=== PATIENT | female | born 1990 | race Caucasian/White ===

== ENCOUNTER 2019-06-23 07:38 | Inpatient (IN) ==
[2019-06-23] MEDS ORDERED: OXYTOCIN 30 UNITS/500 ML BAG IV PRN (09:26)
--- NOTE | 2019-06-23 09:30 | Obstetrical Progress Note ---
Date of Service June 23, 2019 Assessment & Plan Admission and Anticipated Discharge Date Admission Date: June 23, 2019 Subjective Pt doing well FHR ; CAT! CTx 2-4mins mild intensity VE: ft/post/50%/-2/mid EFW: 8lbs will start with Cytotec Pt agrees with plan Results & Data ([facility]) Vital Signs (Past 12 Hours) Vital Signs Temp Resp 06/23/19 08:30 36.6 C 20
[2019-06-23 09:50] LABS: Hematocrit (blood only) 29.9 % (37-47); Mean Corpuscular Hemoglobin 27.2 pg (25-34); Mean Corpuscular Volume 81.3 fL (80-100); Mean Platelet Volume 10.6 fL (7.4-10.4); Nucleated RBC # (auto) 0.02 K/uL (0-0); Nucleated RBC % (auto) 0.3 %; Platelet Count 202 K/uL (130-400); RDW Coefficient of Variation 13.7 % (11.5-14.5); RDW Standard Deviation 40.8 fL (36.4-46.3); Red Blood Count 3.68 M/uL (4.2-5.4); White Blood Count 8.39 K/uL (4.8-10.8)
[2019-06-23] MEDS ORDERED: Nursing to Pharmacy Communication ONE (09:52)
[2019-06-23 09:57] LABS: Mean Corpuscular Hgb Conc 33.4 g/dL (32-36)
[2019-06-23] MEDS: miSOPROStoL 50 MCG TAB PO SCH ×4 (10:06→23:00)
[2019-06-23] MEDS ORDERED: miSOPROStoL 50 MCG TAB PO SCH (12:00)
[2019-06-23] MEDS ORDERED: DINOPROSTONE 10 MG INSERT PV ONE (20:09)
[2019-06-23] MEDS: LACTATED RINGER'S 1,000 ML IV PRN (21:36)
[2019-06-23] MEDS: BUTORPHANOL TARTRATE 1 MG/ML VIAL IV PRN (22:09)
[2019-06-24] MEDS: miSOPROStoL 50 MCG TAB PO SCH (03:43)
[2019-06-24] MEDS ORDERED: LEVOTHYROXINE SODIUM 112 MCG TABLET PO STA (07:05)
--- NOTE | 2019-06-24 11:10 | History & Physical Report ---
Date of Service June 24, 2019 Assessment & Plan (1) Post-dates : 28 yo at 40.4 wk admitted yesterday for IOL, s/p 4 doses of Cytotec VSS febrile FHR ressuring GBS Negative Plan to continue with cervical ripening Continue to monitor History of Present Illness Primary Care Provider: NO PCP Patient is a 28 yo at 40.4 wks who was admitted yesterday for IOL for postdates She received PO cytotec for 4 dose, feels cxs q 3-4 min, not very painful No LOF/VB +FM Her has been uncomplicated GBS negative Allergies Allergy/AdvReac Type Severity Reaction Status Date / Time No Known Allergies Allergy Verified 06/23/19 09:14 Home Medications Home Medications Medication Instructions Recorded Confirmed Type levothyroxine 112 mcg PO DAILY 06/23/19 06/23/19 History vit-iron fum-folic ac 1 tab PO DAILY 06/23/19 06/23/19 History [ Vitamin] Patient History Medical History Hypothyroidism Social History Preferred Language: Romanian Beliefs That Will Affect Care: None marital status: Current Living Situation: Spouse Other Information That Helps Us Care for You: No Feels Safe at Home: Yes Safety Concerns: Feels Safe At This Time Smoking Status: Never smoker Hx Alcohol Use: No Hx Substance Use: No DISCOVERY GUIDE History Denies h/o STD's Review of Systems All systems reviewed & are unremarkable except as noted in HPI & below Physical Exam Constitutional: WD/WN, vitals as above well developed and well nourished NAD Gastrointestinal (Abdomen): Abd: sof, NT, gravid, luciano 8 lb Genitourinary: VE; cervix 2 cm/ 60%/ -2, posterior Results & Data Vital Signs (Past 12 Hours) Vital Signs Temp Pulse Resp BP 06/24/19 10:53 92 H 148/77 H 06/24/19 07:08 85 131/86 06/24/19 07:06 36.9 C 20 06/24/19 02:45 36.8 C 75 18 115/56 L 06/24/19 01:01 75 116/57 L Monitoring External Monitor Categ I Tocodynamometer Ctxs q 3-5 min
[2019-06-24] MEDS ORDERED: DINOPROSTONE 10 MG INSERT PV ONE (11:50)
[2019-06-24] MEDS: BUTORPHANOL TARTRATE 1 MG/ML VIAL IV PRN ×2 (13:00→16:59)
[2019-06-24] MEDS ORDERED: ePHEDrine sulfate 50 MG/ML AMP ONE (20:31)
[2019-06-24] MEDS ORDERED: fentaNYL citrate 100 MCG/2 ML VIAL ONE (20:31)
[2019-06-24] MEDS ORDERED: BUPIVACAINE 0.25% 30 ML VIAL ONE (20:31)
[2019-06-24] MEDS ORDERED: fentaNYL 2MCG/ML ROPIV 1.25MG/ML 100 ML BAG EPI ONE (20:32)
--- NOTE | 2019-06-24 20:47 | Obstetrical Progress Note ---
Date of Service June 24, 2019 Assessment & Plan Admission and Anticipated Discharge Date Admission Date: June 23, 2019 Subjective Patient is reevaluated She is getting more panful and desires epidural for pain VE 3/ 70%/ -2 per her nurse FHR categ I [place]: ctxs q 2-4 min Bed side US done: unable to get perfect measures for BPD/ HC due to being low, EFW 3670 gr, FM's seen Will continue to monitor Epidural for pain Results & Data ([facility]) Vital Signs (Past 12 Hours) Vital Signs Temp Pulse Resp BP Pulse Ox 06/24/19 19:05 36.8 C 18 06/24/19 19:04 85 123/76 06/24/19 18:33 103 H 96 06/24/19 18:28 99 H 97 06/24/19 18:23 83 96 06/24/19 18:18 84 97 06/24/19 18:13 88 96 06/24/19 18:08 85 95 06/24/19 18:03 82 96 06/24/19 17:58 78 96 06/24/19 17:53 80 96 06/24/19 17:48 79 96 06/24/19 17:43 81 95 06/24/19 17:38 78 96 06/24/19 17:33 84 96 06/24/19 17:28 76 96 06/24/19 17:23 98 H 97 06/24/19 17:18 108 H 96 06/24/19 17:13 81 95 06/24/19 17:08 81 96 06/24/19 17:03 75 96 06/24/19 16:59 83 126/80 06/24/19 16:58 89 98 06/24/19 16:19 36.8 C 18 06/24/19 15:22 90 99 06/24/19 15:17 86 99 06/24/19 15:12 81 98 06/24/19 15:07 75 98 06/24/19 15:02 70 98 06/24/19 14:57 68 98 06/24/19 14:52 67 99 06/24/19 14:47 68 97 06/24/19 14:42 64 98 06/24/19 14:37 91 H 98 06/24/19 14:32 69 98 06/24/19 14:27 70 97 06/24/19 14:22 71 98 02/14/20 14:17 80 98 06/24/19 14:12 76 98 06/24/19 14:07 73 98 06/24/19 14:02 79 98 06/24/19 13:57 79 98 06/24/19 13:52 75 98 06/24/19 13:47 78 99 06/24/19 13:42 79 98 06/24/19 13:37 83 98 06/24/19 13:32 71 97 06/24/19 13:27 73 97 06/24/19 13:22 74 97 06/24/19 13:17 76 97 06/24/19 13:12 71 97 06/24/19 13:07 75 98 06/24/19 13:02 78 99 06/24/19 13:00 06/24/19 12:58 83 138/82 06/24/19 11:00 36.9 C 20 06/24/19 10:53 92 H 148/77 H
--- NOTE | 2019-06-24 20:50 | Anesthesiology Consultation ---
Date of Service June 24, 2019 Assessment & Plan Chart Review Chart Review: Patient NOT seen in Pre Admission Testing and Acceptable Risk for Labor Epidural Consults Requested none ASA ASA2 Proposed Anesthesia Anesthesia Type: Labor Epidural and CSE Risk / Benefits Reviewed With: PT / POA / Parent / Guardian, Accepts Plan and Informed Consent Obtained History Height/Weight Height: 5 ft 3 in Weight: 77.111 kg Allergies Allergy/AdvReac Type Severity Reaction Status Date / Time No Known Allergies Allergy Verified 06/23/19 09:14 Medications Home Medications Medication Instructions Recorded Confirmed Last Taken levothyroxine 112 mcg PO DAILY 06/23/19 06/23/19 06/23/19 05:45 vit-iron fum-folic ac 1 tab PO DAILY 06/23/19 06/23/19 06/23/19 05:45 [ Vitamin] Active Medications Generic Name Dose Route Start Last Admin Trade Name Freq PRN Reason Stop Dose Admin Butorphanol Tartrate 1 mg 06/23/19 21:50 06/24/19 16:59 Stadol IV 07/23/19 21:49 1 mg Q4 PRN Administration Pain Lactated Ringer's 1,000 mls @ 125 mls/hr 06/23/19 09:26 06/24/19 20:25 Lr IV 06/25/19 09:25 999 mls/hr .Q8H PRN Infusion L&D Protocol Protocol Misoprostol 50 mcg 06/23/19 10:00 06/24/19 03:43 Cytotec PO 07/23/19 09:59 50 mcg Q4H KIMBERLY Administration NPO Date Last Intake of Fluids: 06/24/19 Time Last Intake of Fluids: 18:00 Date Last Intake of Solids: 06/24/19 Time Last Intake of Solids: 08:00 Past Medical History Medical History Hypothyroidism Exercise / Class Metabolic Activity II 4-5 Yardwork/Stairs/Walk up hill Past Anesthesia History No Hx of Anesthesia Complications and No Family Hx of Anesthesia Complications History of PONV No Hx of PONV and No Hx of Motion Sickness Social History Smoking Status: Never smoker Hx Alcohol Use: No Hx Substance Use: No substance use type: does not use Physical Exam Vital Signs Last Vital Signs Temp 36.8 C 06/24/19 19:05 Pulse 86 06/24/19 20:46 Resp 18 06/24/19 19:05 BP 125/81 06/24/19 20:46 Pulse Ox 96 06/24/19 18:33 Constitutional + obese ENMT Mouth: + small oral opening; no dentition abnormality Thyromental Distance: < 3.5 Finger Breadths Mallampati Class: II Neck normal visual inspection and trachea midline; neck extension not limited Respiratory normal respiratory effort Auscultation: lungs clear to auscultation bilaterally Cardiovascular Rate/Rhythm: regular rate and regular rhythm Heart Sounds: no murmur Musculoskeletal Spine: lumbar spine normal to inspection; normal cervical ROM Neurologic moves all extremities Motor/Sensory: no sensory deficit Psychiatric Orientation: alert and oriented x 3 Testing Laboratory Results 06/23/19 09:36
[2019-06-24] MEDS ORDERED: NALOXONE HCL 1 MG in SODIUM CHLORIDE 0.9% 1000ML 1,000 ML IV PRN (21:17)
[2019-06-24] MEDS ORDERED: PROMETHAZINE HCL 25 MG in SODIUM CHLORIDE 0.9% 50 ML IV PRN (21:17)
[2019-06-24] MEDS ORDERED: NALOXONE HCL 0.4 MG/1 ML VIAL/CARP IV PRN (21:17)
[2019-06-24] MEDS ORDERED: NALBUPHINE HCL INJ 10 MG/ML AMP IV PRN (21:17)
[2019-06-24] MEDS ORDERED: ePHEDrine sulfate 50 MG/ML AMP IV PRN (21:17)
[2019-06-24] MEDS ORDERED: fentaNYL 2MCG/ML ROPIV 1.25MG/ML 100 ML BAG EPI PRN (21:17)
[2019-06-24] MEDS ORDERED: DiphenhydrAMINE HCL 50 MG/ML VIAL IV PRN (21:17)
[2019-06-24] MEDS ORDERED: ONDANSETRON INJ 2 MG/ML 2 ML VIAL IV PRN (21:17)
--- NOTE | 2019-06-24 22:22 | Obstetrical Progress Note ---
Date of Service June 24, 2019 Assessment & Plan Admission and Anticipated Discharge Date Admission Date: June 23, 2019 Subjective Patient is comfortable now VE; 3-4 cm/ 705/ -2, more central, AROM'ed clear fluid, Cervidil came out FHR categ I [place] ctxs q2-5 min Continue to monitor Anticipate Results & Data ([facility]) Vital Signs (Past 12 Hours) Vital Signs Temp Pulse Resp BP Pulse Ox 06/24/19 22:17 97 H 98 06/24/19 22:15 88 120/74 06/24/19 22:12 73 98 06/24/19 22:07 71 98 06/24/19 22:02 87 99 06/24/19 21:59 86 110/65 06/24/19 21:57 88 99 06/24/19 21:52 92 H 97 06/24/19 21:47 95 H 98 06/24/19 21:46 88 124/65 06/24/19 21:42 92 H 98 06/24/19 21:37 93 H 98 06/24/19 21:32 91 H 98 06/24/19 21:29 93 H 117/67 06/24/19 21:27 89 120/66 97 06/24/19 21:25 87 119/63 06/24/19 21:23 93 H 117/63 06/24/19 21:22 87 98 06/24/19 21:21 81 120/64 06/24/19 21:19 90 118/64 06/24/19 21:17 92 H 124/65 98 06/24/19 21:15 82 124/63 06/24/19 21:13 86 133/66 06/24/19 21:12 84 99 06/24/19 21:11 86 110/66 06/24/19 21:09 94 H 130/73 06/24/19 21:07 86 98 06/24/19 20:46 86 125/81 06/24/19 19:05 36.8 C 18 06/24/19 19:04 85 123/76 06/24/19 18:33 103 H 96 06/24/19 18:28 99 H 97 06/24/19 18:23 83 96 06/24/19 18:18 84 97 06/24/19 18:13 88 96 06/24/19 18:08 85 95 06/24/19 18:03 82 96 06/24/19 17:58 78 96 06/24/19 17:53 80 96 06/24/19 17:48 79 96 06/24/19 17:43 81 95 06/24/19 17:38 78 96 06/24/19 17:33 84 96 06/24/19 17:28 76 96 06/24/19 17:23 98 H 97 06/24/19 17:18 108 H 96 06/24/19 17:13 81 95 06/24/19 17:08 81 96 06/24/19 17:03 75 96 06/24/19 16:59 83 126/80 06/24/19 16:58 89 98 06/24/19 16:19 36.8 C 18 06/24/19 15:22 90 99 06/24/19 15:17 86 99 06/24/19 15:12 81 98 06/24/19 15:07 75 98 06/24/19 15:02 70 98 06/24/19 14:57 68 98 06/24/19 14:52 67 99 06/24/19 14:47 68 97 06/24/19 14:42 64 98 06/24/19 14:37 91 H 98 06/24/19 14:32 69 98 06/24/19 14:27 70 97 06/24/19 14:22 71 98 06/24/19 14:17 80 98 06/24/19 14:12 76 98 06/24/19 14:07 73 98 06/24/19 14:02 79 98 06/24/19 13:57 79 98 06/24/19 13:52 75 98 06/24/19 13:47 78 99 06/24/19 13:42 79 98 06/24/19 13:37 83 98 06/24/19 13:32 71 97 06/24/19 13:27 73 97 06/24/19 13:22 74 97 06/24/19 13:17 76 97 06/24/19 13:12 71 97 06/24/19 13:07 75 98 06/24/19 13:02 78 99 06/24/19 13:00 20 06/24/19 12:58 83 138/82 06/24/19 11:00 36.9 C 20 06/24/19 10:53 92 H 148/77 H
[2019-06-24] MEDS: LACTATED RINGER'S 1,000 ML IV PRN (22:41)
[2019-06-24] MEDS ORDERED: OXYTOCIN 30 UNITS/500 ML BAG IV PRN (23:46)
[2019-06-25] MEDS: LACTATED RINGER'S 1,000 ML IV PRN (05:55)
[2019-06-25] MEDS ORDERED: CEFAZOLIN 3000MG/72.5 ML BAG IV STA (06:52)
[2019-06-25] MEDS ORDERED: CEFAZOLIN 2000MG 2,000 MG/15 ML SYR IV ONE (07:15)
[2019-06-25] MEDS: BUTORPHANOL TARTRATE 1 MG/ML VIAL IV PRN (07:24)
[2019-06-25] MEDS ORDERED: COLLAGEN HEMOSTAT ABSORBABLE ONE (07:30)
[2019-06-25] MEDS ORDERED: BENZOCAINE 20% AER SPR 82.5 GM CAN EXT PRN (07:57)
[2019-06-25] MEDS ORDERED: HYDROCORTISONE ACETATE 25 MG SUPP PR PRN (07:57)
[2019-06-25] MEDS ORDERED: SUPERCREAM 0.870% 15 GM JAR EXT PRN (07:57)
[2019-06-25] MEDS ORDERED: ACETAMINOPHEN 325 MG TAB PO PRN (07:57)
[2019-06-25] MEDS ORDERED: OXYTOCIN 30 UNITS/500 ML BAG IV PRN (07:57)
[2019-06-25] MEDS ORDERED: MEASLES, MUMPS & RUBELLA VIRUS VIAL SQ ONE (07:57)
[2019-06-25] MEDS ORDERED: bisacodyL 10 MG SUPP PR PRN (07:57)
[2019-06-25] MEDS ORDERED: DIPHTHERIA/TETANUS/PERTUSSIS 0.5 ML SYR/VIAL IM ONE (07:57)
[2019-06-25] MEDS ORDERED: Nursing to Pharmacy Communication ONE ×2 (08:13→08:40)
[2019-06-25] MEDS: DOCUSATE SODIUM 100 MG CAP PO SCH ×2 (08:50→20:48)
[2019-06-25] MEDS: FERROUS SULFATE 325 MG TAB PO SCH (08:50)
[2019-06-25] MEDS: PRENATAL VITAMIN 1 TAB PO SCH (08:50)
[2019-06-25] MEDS: IBUPROFEN 600 MG TAB PO PRN ×4 (08:50→20:48)
--- NOTE | 2019-06-25 08:57 | Anesthesia Procedure Note ---
Date of Service June 25, 2019 Anesthesia Post Epidural Note Vital Signs Vital Signs: Temp Pulse Resp BP Pulse Ox 37.2 C 101 H 18 134/74 97 06/25/19 07:10 06/25/19 08:44 06/25/19 08:35 06/25/19 08:44 06/25/19 07:46 Pain Intensity Perineal: Pain Intensity: 6 Notes Mental Status: alert / awake / arousable and participated in evaluation Nausea / Vomiting: adequately controlled Pain: adequately controlled Airway Patency, RR, SpO2: stable & adequate BP & HR: stable & adequate Hydration State: stable & adequate Neuraxial Anesthesia: was administered and sensory block is resolving Anesthetic Complications: no major complications apparent Epidural: Removed without complications and With tip intact
--- NOTE | 2019-06-25 10:09 | Delivery Summary ---
DATE OF OPERATION: 06/25/2019 TIME OF DELIVERY OF BABY: 06:45 a.m. DETAILS OF DELIVERY: The patient was found to be fully dilated and desired to push. She pushed for about 2 hours and she was getting exhausted. heart rate was tachycardic and head was over the perineum and macrosomia was suspected. After verbal consent was obtained, a right mediolateral episiotomy was opened and then head was delivered and turtle sign was noted, anterior, which was the left shoulder that was stuck behind the pubic bone. Nurses were notified. The patient's bed was lowered all the way down and with the suprapubic pressure and Caity maneuvers, anterior shoulder was delivered without difficulty and then posterior shoulder and the baby without difficulty. Baby was handed off to the mother where mouth and nose were suctioned. Cord was clamped x2 and cut and then baby was taken by the pediatric team. Cord blood was obtained. It was a 3-vessel cord. Then, vagina and perineum were checked for lacerations. There was a right mediolateral episiotomy, which was extending into the right vaginal wall and on the perianal skin and a rectal exam was done, good sphincter tone was noted. The perineal body muscles around the external sphincter were held with Allis clamps to reinforce the sphincter. Gloves were changed. Those muscles held by Allis clamps were reapproximated with [id number] stitches x2 and a rectal exam was done. Excellent sphincter tone was noted. No sutures were felt. Gloves were changed again. Vaginal mucosa was repaired with 0 Vicryl in a running locked fashion. The perineal body muscles and bulbocavernosus muscles were repaired with 2-0 Vicryl in a running fashion and the skin was closed in a subcuticular fashion. There was oozing in the middle of the incision in the vagina. It was repaired with [id number] stitches x2. The placenta was found to be in the vagina, delivered spontaneous as intact and complete. Uterus was explored, cleared of all clots and debris, and it was empty. Fundus was firm. EBL was 300 mL. The vagina was checked again. There was minimal oozing on the vaginal mucosa. It was covered with Rayshawn powder and two 4 x 4 sponges were left for pressure and it will be removed in 2 hours, and the procedure was ended. The patient and baby tolerated the procedure well. Sponge, lap, needle count was correct x3. Baby was a viable male infant, Apgars 6/8. No complications happened and I was present during the whole procedure. I attest to the content of the Intraoperative Record and any orders documented therein. Any exceptions are noted below. MICH
[2019-06-25] MEDS: OXYCODONE/ACETAMINOPHEN 5mg/325mg TAB PO PRN ×2 (17:03→22:57)
[2019-06-26] MEDS: IBUPROFEN 600 MG TAB PO PRN ×3 (00:59→12:36)
[2019-06-26] MEDS ORDERED: LEVOTHYROXINE SODIUM 112 MCG TABLET PO SCH (06:30)
[2019-06-26 06:48] LABS: Hematocrit (blood only) 22.1 % (37-47); Hemoglobin 7.3 g/dL (12.0-16.0); Mean Corpuscular Hemoglobin 27.5 pg (25-34); Mean Corpuscular Volume 83.4 fL (80-100); Platelet Count 175 K/uL (130-400); RDW Coefficient of Variation 14.6 % (11.5-14.5); RDW Standard Deviation 44.2 fL (36.4-46.3); Red Blood Count 2.65 M/uL (4.2-5.4)
[2019-06-26] MEDS: DOCUSATE SODIUM 100 MG CAP PO SCH (07:36)
[2019-06-26] MEDS: FERROUS SULFATE 325 MG TAB PO SCH (07:36)
[2019-06-26] MEDS: PRENATAL VITAMIN 1 TAB PO SCH (07:36)
--- NOTE | 2019-06-26 08:44 | Obstetrical Progress Note ---
Date of Service June 26, 2019 Assessment & Plan (1) abnormal glucose tolerance of mother: PPD #1 Pt doing well anticipate disch AM Subjective Ambulation: ambulating normally Voiding: no voiding problems Passing Gas:: Yes Diet Tolerance:: regular diet Lochia:: Small Feeding Type:: breast feeding Review of Systems All systems reviewed & are unremarkable except as noted in HPI & below Physical Exam Constitutional WD/WN, vitals as above well developed and well nourished Eyes PERRL, conjunctivae normal, anicteric sclerae Neck trachea midline, no thyromegaly Respiratory normal respiratory effort, lungs clear to auscultation Auscultation: no crackles, no rales and no wheezes Cardiovascular RRR, no murmur, no edema Gastrointestinal (Abdomen) normal bowel sounds, soft, nontender, no hepatosplenomegaly Uterus is below umbilicus Musculoskeletal no cyanosis or clubbing, extremities motor strength 5/5 Skin no rashes, warm and dry Neurologic patellar DTR's 2+ bilat, sensation intact Psychiatric A+Ox3, euthymic affect Genitourinary normal external appearance Results & Data Vital Signs (Past 12 Hours) Vital Signs Temp Pulse Resp BP Pulse Ox 06/26/19 07:25 36.5 C 71 16 117/69 98 06/26/19 03:25 36.4 C L 93 H 18 114/70 98 06/26/19 00:45 36.5 C 86 18 129/74 97
[2019-06-26] MEDS ORDERED: bisacodyL 5 MG TABEC PO SCH (20:00)
== END 2019-06-26 17:10 | disposition home or self-care (01) | DRG 807 ==
LOC: 4S1 07:38 → 4S2 06-25 10:30